=== PATIENT | male | born 1960 | race Caucasian/White ===

== ENCOUNTER → 2022-10-31 10:28 | Outpatient (CLI) | payer OTHER, SELFPAY ==
--- NOTE | 2022-10-31 | DI.RAD.S_ITS ---
PROCEDURE: XR KNEE LT 3V INDICATIONS: osteoarthritis TECHNIQUE: 3 views of the knee were acquired. COMPARISON: None. FINDINGS: Bones: Lqaj-bd-kathjwdh degenerative changes, with particular joint space narrowing in the medial compartment. Small hyperdensity is seen adjacent to the fibular head, which may be due to prior injury. Soft tissues: No significant joint effusion. IMPRESSION: Dmwb-kz-miqawysy degenerative changes. Possible prior injury, with a bone fragment adjacent to the fibular head. If there is high concern for further derangement, consider MRI evaluation. Dictated by: Fer Mendez M.D. on 10/31/2022 at 14:55 Approved by: Fer Mendez M.D. on 10/31/2022 at 14:56
== END ==
PROVIDERS: Referring Provider Chiropractor; Visit Provider Chiropractor
DX: M19.90 Unspecified osteoarthritis, unspecified site (principal)
CPT/HCPCS: 73562